=== PATIENT | male | born 1955 | race Caucasian/White ===

== ENCOUNTER 2024-08-05 14:04 | Inpatient (IN) ==
[2024-08-05] MEDS ORDERED: NS 1,000 ML IV 1,000 ML ONE ×2 (14:14→15:55)
[2024-08-05] MEDS: NS 1,000 ML IV 1,000 ML IV ONE ×2 (14:18→16:02)
--- NOTE | 2024-08-05 14:21 | DR.AMS ---
HPI Time Seen Time Seen by Provider: 08/05/24 14:18 Complaint Cheif Complaint Doctors Comments: 69 yo M, hx of CAD on plavix, BIBA for AMS. Daughter came to pt's house, found pt extremely confused, having trouble speaking. States he was only able to speak a few words. Pt able to ambulate with EMS to ambulance. Pt denies other complaints. PMH PMH Past Medical History: Coronary Artery Disease, Diabetes, Dyslipidemia and Hypertension Past Surgical History: Yes Surgical History: Angioplasty/Stents Family History Family Medical History: [place] and Coronary Artery Disease Social History Do you use any recreational Drugs:: No ROS Review of Systems Neurological: Speech Problem and Other (confusion) All Other Systems: Reviewed and Negative PE Vitals Vital Signs: Temp Pulse Resp BP Pulse Ox O2 Del Method 08/05/24 17:30 183/117 08/05/24 17:30 112 H 22 99 08/05/24 17:15 113 H 22 99 08/05/24 17:00 184/103 08/05/24 17:00 113 H 23 98 08/05/24 16:45 112 H 24 98 08/05/24 16:30 111 H 30 H 98 08/05/24 16:30 175/93 08/05/24 16:15 111 H 27 H 99 08/05/24 16:00 115 H 24 98 08/05/24 16:00 177/99 08/05/24 15:45 110 H 25 H 98 08/05/24 15:31 181/90 08/05/24 15:31 113 H 25 H 98 08/05/24 15:30 113 H 24 98 08/05/24 15:15 121 H 26 H 94 L 08/05/24 15:01 119 H 48 H 97 08/05/24 15:01 182/103 08/05/24 15:00 118 H 31 H 98 08/05/24 14:45 119 H 25 H 97 08/05/24 14:44 119 H 27 H 96 08/05/24 14:44 171/91 08/05/24 14:30 122 H 24 97 08/05/24 14:18 99.9 F H 122 H 22 194/108 98 Room Air 08/05/24 14:15 122 H 38 H 98 08/05/24 14:09 124 H 97 08/05/24 14:09 08/05/24 14:08/05/24 14:08 97 General Limitations: Language Barrier General Appearance: Alert Head Head Exam: Normal Inspection Eyes Eye exam: Normal Appearance ENT ENT Exam: Normal Exam External Ear Exam: Normal External Inspection Nose Exam: Normal Nose Exam Mouth Exam: Normal Inspection Throat Exam: Normal Inspection Neck Neck Exam: Normal Inspection Chest Chest Inspection: Normal Inspection Respiratory Respiratory Exam: Normal Lung Sounds Bilat Cardiovascular Cardiovascular Exam: Regular Rate and Normal Rhythm Abdominal Exam Abdominal Exam: Normal Inspection, Normal Bowel Sounds and Soft Extremities Extremities Exam: Normal Inspection Back Back Exam: Normal Inspection Neurological Neurological Exam: Other (confusion, oriented to person and place, but not time. Answers most questions appropriately, remains confused) Psychological Psychiatric Exam: Normal Affect and Normal Mood Skin Skin Exam: Warm, Dry, Intact and Normal Color ROR Labs Reviewed Laboratory Results Reviewed?: Yes 08/05/24 14:40 08/05/24 14:40 Laboratory: WBC 14.6 X10^3/uL (3.6-10.0) H 08/05/24 14:40 RBC 4.74 X10^6/uL (4.7-6.0) 08/05/24 14:40 Hgb 15.5 g/dL (13.5-18.0) 08/05/24 14:40 Hct 44.3 % (42.0-54.0) 08/05/24 14:40 MCV 93.6 fL (80.0-100.0) 08/05/24 14:40 MCH 32.7 pg (27.0-34.0) 08/05/24 14:40 MCHC 34.9 g/dL (33.0-35.0) 08/05/24 14:40 RDW 14.4 % (11.6-16.5) 08/05/24 14:40 Plt Count 302 X10^3/uL (150.0-450.0) 08/05/24 14:40 MPV 8.6 fL (7.4-11.0) 08/05/24 14:40 Neut % (Auto) 80.8 % (42.0-75.0) H 08/05/24 14:40 Lymph % (Auto) 12.7 % (21.0-51.0) L 08/05/24 14:40 [place] % (Auto) 6.0 % (0.0-13.0) 08/05/24 14:40 Eos % (Auto) 0.1 % (0.9-2.9) L 08/05/24 14:40 Baso % (Auto) 0.4 % (0.2-1.0) 08/05/24 14:40 Neut # (Auto) 11.8 x10^3/uL (2.2-4.8) H 08/05/24 14:40 Lymph # (Auto) 1.8 X10^3/uL (1.3-2.9) 08/05/24 14:40 [place] # (Auto) 0.9 x10^3/uL (0.3-0.8) H 08/05/24 14:40 Eos # (Auto) 0.0 x10^3/uL (0.0-0.2) 08/05/24 14:40 Baso # (Auto) 0.1 X10^3/uL (0.0-0.1) 08/05/24 14:40 Absolute Nucleated RBC 0.0 /100WBC 08/05/24 14:40 Sample Site Rbra 08/05/24 14:35 ABG pH 7.480 (7.35-7.45) H 08/05/24 14:35 ABG pCO2 25.0 mmHg (35.0-45.0) L 08/05/24 14:35 ABG pO2 85.0 mmHg (80.0-100.0) 08/05/24 14:35 ABG HCO3 18.6 mmol/L (22-26) L 08/05/24 14:35 ABG O2 Saturation 97.0 % (90-100) 08/05/24 14:35 ABG Base Excess -3.4 mmol/L (-2.0-2.0) L 08/05/24 14:35 Brandon Test Na 08/05/24 14:35 A-a Gradient 33.0 mmHg 08/05/24 14:35 FiO2 21.0 08/05/24 14:35 Blood Gas Comments Anni well ms 08/05/24 14:35 Sodium 135 mmol/L (136-145) L 08/05/24 14:40 Corrected Sodium 147 mmol/L (136-145) H 08/05/24 14:40 Potassium 4.0 mmol/L (3.5-5.1) 08/05/24 14:40 Chloride 98 mmol/L (98-107) 08/05/24 14:40 Carbon Dioxide 21.1 mmol/L (21-32) 08/05/24 14:40 BUN 25 mg/dL (7-18) H 08/05/24 14:40 Creatinine 1.52 mg/dL (0.70-1.30) H 08/05/24 14:40 Est GFR (MDRD) Af Amer 59 (>60) 08/05/24 14:40 Est GFR (MDRD) Non-Af 48 (>60) L 08/05/24 14:40 Glucose 607 mg/dL (65-99) H* 08/05/24 14:40 POC Glucose (mg/dL) 370 mg/dL (65-99) H 08/05/24 16:18 Lactic Acid 7.2 mmol/L (0.4-2.0) H* 08/05/24 14:40 Calcium 10.5 mg/dL (8.5-10.1) H 08/05/24 14:40 Corrected Calcium TNP 08/05/24 14:40 Total Bilirubin 1.40 mg/dL (0.2-1.0) H 08/05/24 14:40 AST 29 Units/L (15-37) 08/05/24 14:40 ALT 33 Units/L (12-78) 08/05/24 14:40 Alkaline Phosphatase 98 Units/L (46-116) 08/05/24 14:40 Creatine Kinase 445 Units/L (39-308) H 08/05/24 14:40 Troponin I High Sens 317.9 ng/L (4.0-60.0) H* 08/05/24 14:40 Total Protein 11.4 g/dL (6.4-8.2) H 08/05/24 14:40 Albumin 4.9 g/dL (3.4-5.0) 08/05/24 14:40 Globulin 6.5 g/dL (2.5-4.5) H 08/05/24 14:40 Albumin/Globulin Ratio 0.8 Ratio (1.1-2.1) L 08/05/24 14:40 Specimen Type Clean catch urine 08/05/24 14:41 Urine Color [place] (YELLOW) 08/05/24 14:41 Urine Appearance Cloudy (CLEAR) 08/05/24 14:41 Urine pH 6.0 (5.0 - 8.0) 08/05/24 14:41 Ur Specific [place] 1.010 (1.000-1.030) 08/05/24 14:41 Urine Protein 3+ (NEGATIVE) 08/05/24 14:41 Urine Glucose (UA) 4+ (NEGATIVE) 08/05/24 14:41 Urine Ketones 3+ (NEGATIVE) 08/05/24 14:41 Urine Blood 5+ (NEGATIVE) 08/05/24 14:41 Urine Nitrite Negative (NEGATIVE) 08/05/24 14:41 Urine Bilirubin Negative (NEGATIVE) 08/05/24 14:41 Urine Urobilinogen Normal (NORMAL) 08/05/24 14:41 Ur Leukocyte Esterase Negative (NEGATIVE) 08/05/24 14:41 Urine RBC Tntc /HPF (0-3) A 08/05/24 14:41 Urine WBC 0-2 /HPF (0-5) 08/05/24 14:41 Ur Squamous Epith Cells Rare /HPF (NEGATIVE) 08/05/24 14:41 Urine Bacteria Negative /HPF (NEGATIVE) 08/05/24 14:41 Ur Culture Indicated? No/not indicated 08/05/24 14:41 Urine Opiates Screen Negative (NEG=<300) 08/05/24 14:41 Urine Methadone Screen Negative (NEG=<300) 08/05/24 14:41 Ur Barbiturates Screen Negative (NEG=<200) 08/05/24 14:41 Ur Phencyclidine Scrn Negative (NEG=<25) 08/05/24 14:41 Ur Amphetamines Screen Negative (NEG=<1000) 08/05/24 14:41 U Benzodiazepines Scrn Negative (NEG=<200) 08/05/24 14:41 Urine Cocaine Screen Negative (NEG=<300) 08/05/24 14:41 U Marijuana (THC) Screen Negative (NEG=<50) 08/05/24 14:41 Acetone, Semi-Quant Negative (NEGATIVE) 08/05/24 14:40 Opioid Opioid Risk Tool Age (Walker box if 16-45): No History of Preadolescent Sexual Abuse: No Total: 0 Total Score Risk Category: Low Risk Copyright: [facility] predicting aberrant behaviors Discharge Plan Diagnosis Discharge Problem: Altered mental status, Hematuria, Platelet inhibition due to Plavix, Acute hyperglycemia, Elevated lactic acid level Discharge Plan Patient Disposition: 09 ADMITTED INPATIENT Condition: Stable Prescriptions: No Action citalopram 20 mg tablet 20 mg PO QDAY Qty: 30 2RF glipizide 2.5 mg tablet extended release 24hr 2.5 mg PO QDAY Qty: 30 3RF levothyroxine 88 mcg tablet 88 mcg PO QDAY 30 Days Qty: 30 5RF metformin 1,000 mg tablet 1,000 mg PO BID 30 Days Qty: 60 5RF niacin 1,000 mg tablet extended release 24 hr 1,000 mg PO BID Qty: 60 2RF pregabalin 300 mg capsule 300 mg PO BID 30 Days Qty: 60 2RF alprazolam 0.5 mg tablet 0.5 mg PO HS MDD 1 30 Days Qty: 30 2RF Rx Instructions: Free[employer] (one) Tablet at bedtime; Refills: 2; Provider: Stephany Duron oxycodone-acetaminophen 10-325 mg tablet 1 tab PO TID MDD 3 PRN (Reason: pain) 30 Days Qty: 90 0RF tamsulosin 0.4 mg capsule 0.4 mg PO QDAY 30 Days Qty: 30 3RF gemfibrozil 600 mg tablet 600 mg PO BID 30 Days Qty: 60 5RF atorvastatin 40 mg tablet 40 mg PO QDAY clopidogrel 75 mg tablet 75 mg PO QDAY metoprolol succinate 25 mg tablet extended release 24 hr 25 mg PO DAILY Patient Comments: [NO ORIGINAL SIG] Health Concerns: Post Hospitalization: new medications and changes needed to prevent readmission or further decline. Pt educated and given instructions on all concerns. Plan of Treatment: Continue with present treatment and follow up plan. Pt is to keep follow up appointment as instructed and take medications as ordered. Orders to Discharge Patient Discharge Orders: Transfer (Routine); Ordered 08/05/24 Ordered By: Ta Barton Follow ups/Referrals Follow ups/Referrals: Sally MCCLOUD [STAFF PHYSICIAN] - 3 days Instructions Stand Alone Forms: Find Help Web Site, Post Hospital Follow Up Care Print Language: LATVIAN
--- NOTE | 2024-08-05 14:32 | EKG ---
Test Reason : AMS Blood Pressure : */* mmHG Vent. Rate : 122 BPM Atrial Rate : 122 BPM P-R Int : 188 ms QRS Dur : 82 ms QT Int : 290 ms P-R-T Axes : 22 -13 84 degrees QTc Int : 413 ms Sinus tachycardia Septal infarct , age undetermined Possible Lateral infarct , age undetermined Abnormal ECG No previous ECGs available Confirmed by Ken uDmont MD ([id number]) on 08/06/2024 7:13:20 AM Referred By: Confirmed By: Ken Dumont MD
[2024-08-05 14:38] LABS: ABG BASE EXCESS -3.4 mmol/L (-2.0-2.0); ABG HCO3 18.6 mmol/L (22-26)
--- NOTE | 2024-08-05 14:43 | CT ---
EXAM: BRAIN W/O CON HISTORY: AMS; COMPARISON: No relevant prior studies were available for comparison at the time of interpretation.. TECHNIQUE: CT images were obtained. Multiplanar reconstructions were created on a separate workstation and used during interpretation. All CT scans at this facility is dose modulation, iterative reconstruction, and/or weight-based dosing as appropriate to reduce radiation to levels as low as reasonably achievable (ALARA). Postprocessing details, radiation dose, and contrast dose (if applicable) are recorded in the patient's medical record. FINDINGS: Head: Acute findings: There is no intracranial hemorrhage. No mass effect. No intra-axial or extra-axial fluid collection. There is no mass. No tentorial, uncal, or tonsillar herniation. Brain volume and white matter: There is diffuse cortical atrophy. There is hypoattenuation in the supratentorial white matter consistent with chronic microvascular ischemic disease. Ventricles: No hydrocephalus Midline structures: Pituitary gland and corpus callosum are normal. Posterior fossa and skull base: Cerebellum and posterior fossa are within normal limits. Basal cisterns are not effaced. Sinuses and mastoids: Paranasal sinuses and mastoid air cells are predominantly clear. Globes and Orbits: Globes are intact. Bony orbits are intact. Orbital contents are unremarkable. Skull and soft tissues: No depressed skull fracture. Calvarium appears intact. No scalp injury is identified. IMPRESSION: 1. No acute intracranial abnormality THIS IS AN ELECTRONICALLY VERIFIED FINAL REPORT 08/05/2024 2:39 PM - Electronically signed by Jeffery Mora MD
[2024-08-05 15:00] LABS: BASOPHILS # (AUTO) 0.1 X10^3/uL (0.0-0.1); BASOPHILS % (AUTO) 0.4 % (0.2-1.0); EOSINOPHILS % (AUTO) 0.1 % (0.9-2.9); HEMATOCRIT 44.3 % (42.0-54.0); HEMOGLOBIN 15.5 g/dL (13.5-18.0); LYMPHOCYTES # (AUTO) 1.8 X10^3/uL (1.3-2.9); LYMPHOCYTES % (AUTO) 12.7 % (21.0-51.0); MEAN CORPUSCULAR HEMOGLOBIN 32.7 pg (27.0-34.0); MEAN CORPUSCULAR HGB CONC 34.9 g/dL (33.0-35.0); MEAN CORPUSCULAR VOLUME 93.6 fL (80.0-100.0); MEAN PLATELET VOLUME 8.6 fL (7.4-11.0); MONOCYTES # (AUTO) 0.9 x10^3/uL (0.3-0.8); NEUTROPHILS # (AUTO) 11.8 x10^3/uL (2.2-4.8); NEUTROPHILS % (AUTO) 80.8 % (42.0-75.0); PLATELET COUNT 302 X10^3/uL (150.0-450.0); RED BLOOD COUNT 4.74 X10^6/uL (4.7-6.0); RED CELL DISTRIBUTION WIDTH 14.4 % (11.6-16.5); WHITE BLOOD COUNT 14.6 X10^3/uL (3.6-10.0)
[2024-08-05 15:06] LABS: APPEARANCE,URINE CLOUDY (CLEAR); BILIRUBIN,URINE NEGATIVE (NEGATIVE); BLOOD/HEMOGLOBIN,URINE 5+ (NEGATIVE); COLOR,URINE PINK (YELLOW); GLUCOSE, URINE 4+ (NEGATIVE); KETONES,URINE 3+ (NEGATIVE); LEUKOCYTE ESTERASE ,URINE NEGATIVE (NEGATIVE); NITRITES,URINE NEGATIVE (NEGATIVE); PROTEIN,URINE 3+ (NEGATIVE); UROBILINOGEN,URINE NORMAL (NORMAL)
[2024-08-05 15:07] LABS: BACTERIA,URINE NEGATIVE /HPF (NEGATIVE); RBC,URINE TNTC /HPF (0-3); SQUAMOUS EPITHELIAL CELL,UR RARE /HPF (NEGATIVE)
[2024-08-05 15:13] LABS: ALANINE AMINOTRANSFERASE 33 Units/L (12-78); ALBUMIN 4.9 g/dL (3.4-5.0); ALKALINE PHOSPHATASE 98 Units/L (46-116); ASPARTATE AMINO TRANSFERASE 29 Units/L (15-37); BLOOD UREA NITROGEN 25 mg/dL (7-18); CALCIUM 10.5 mg/dL (8.5-10.1); CARBON DIOXIDE 21.1 mmol/L (21-32); CHLORIDE 98 mmol/L (98-107); CREATININE 1.52 mg/dL (0.70-1.30); SODIUM 135 mmol/L (136-145); TOTAL PROTEIN 11.4 g/dL (6.4-8.2); eGFR NON BLACK RACES 48 (>60)
[2024-08-05 15:15] LABS: COR NA(FOR HYPERGLY) 147 mmol/L (136-145); GLUCOSE 607 mg/dL (65-99)
[2024-08-05] MEDS ORDERED: NovoLIN R (or HumuLIN R) ONE (15:21)
[2024-08-05] MEDS: NovoLIN R (or HumuLIN R) IV ONE (15:27)
[2024-08-05] MEDS: ATIVAN INJ 2 MG VIAL IVP ONE (18:31)
[2024-08-05] MEDS: ROCEPHIN VIAL 1 GRAM IV SCH (18:31)
[2024-08-05] MEDS: VANCOMYCIN IV *PREMIX 1 G/200 ML BAG 1 G/200 ML PIGGYBACK IV SCH (18:31)
[2024-08-05] MEDS: NS 1,000 ML IV 1,000 ML IV SCH (19:36)
[2024-08-05] MEDS: SNACK - Diabetic Appropriate PO SCH (19:56)
[2024-08-05] MEDS ORDERED: SNACK - Diabetic Appropriate PO SCH (20:00)
[2024-08-05] MEDS: LYRICA CAP 150 mg PO SCH (20:35)
[2024-08-05] MEDS: NovoLIN R (or HumuLIN R) SUBCUT PRN (20:35)
[2024-08-05] MEDS: ALPRAZOLAM ODT PO SCH (20:35)
[2024-08-05] MEDS: NIASPAN ER TAB 500 MG PO SCH (20:57)
[2024-08-05] MEDS ORDERED: NS 250 ML IV 25 ML IV PRN (21:32)
[2024-08-05] MEDS: ZOSYN VIAL 3.375 GRAMS 3.375 G in NS 100 ML IV 100 ML IV SCH (22:16)
[2024-08-06 05:27] LABS: INR 1.27 (0.8-1.3)
[2024-08-06 05:29] LABS: BASOPHILS % (AUTO) 0.2 % (0.2-1.0); EOSINOPHILS # (AUTO) 0.1 x10^3/uL (0.0-0.2); EOSINOPHILS % (AUTO) 0.4 % (0.9-2.9); HEMATOCRIT 37.6 % (42.0-54.0); LYMPHOCYTES # (AUTO) 2.8 X10^3/uL (1.3-2.9); LYMPHOCYTES % (AUTO) 18.6 % (21.0-51.0); MEAN CORPUSCULAR HGB CONC 35.8 g/dL (33.0-35.0); MEAN CORPUSCULAR VOLUME 92.1 fL (80.0-100.0); MEAN PLATELET VOLUME 8.6 fL (7.4-11.0); MONOCYTES # (AUTO) 1.1 x10^3/uL (0.3-0.8); MONOCYTES % (AUTO) 7.2 % (0.0-13.0); NEUTROPHILS # (AUTO) 11.1 x10^3/uL (2.2-4.8); NEUTROPHILS % (AUTO) 73.6 % (42.0-75.0); PLATELET COUNT 222 X10^3/uL (150.0-450.0); RED BLOOD COUNT 4.08 X10^6/uL (4.7-6.0); RED CELL DISTRIBUTION WIDTH 13.9 % (11.6-16.5)
[2024-08-06 05:43] LABS: ALANINE AMINOTRANSFERASE 29 Units/L (12-78); ALBUMIN 3.9 g/dL (3.4-5.0); ALKALINE PHOSPHATASE 75 Units/L (46-116); ASPARTATE AMINO TRANSFERASE 28 Units/L (15-37); BLOOD UREA NITROGEN 20 mg/dL (7-18); CALCIUM 8.7 mg/dL (8.5-10.1); CARBON DIOXIDE 22.8 mmol/L (21-32); CHLORIDE 99 mmol/L (98-107); CHOL/HDL RATIO 2.8 (0.0-5.0); CHOLESTEROL 116 mg/dL (0-200); COR NA(FOR HYPERGLY) 140 mmol/L (136-145); CREATININE 0.76 mg/dL (0.70-1.30); GLUCOSE 310 mg/dL (65-99); HDL CHOLESTEROL 42 mg/dL (40-60); MAGNESIUM 1.9 mg/dL (2.0-2.9); POTASSIUM 3.1 mmol/L (3.5-5.1); SODIUM 135 mmol/L (136-145); TRIGLYCERIDES 184 mg/dL (0-150); eGFR NON BLACK RACES > 60 (>60)
[2024-08-06 05:52] LABS: HEMOGLOBIN 13.5 g/dL (13.5-18.0)
[2024-08-06] MEDS: SYNTHROID 88 mcg TAB PO SCH (06:14)
[2024-08-06] MEDS: GLUCOPHAGE PO SCH (06:15)
[2024-08-06 06:17] LABS: BILIRUBIN,URINE NEGATIVE (NEGATIVE); BLOOD/HEMOGLOBIN,URINE 5+ (NEGATIVE); GLUCOSE, URINE 4+ (NEGATIVE); KETONES,URINE 4+ (NEGATIVE); LEUKOCYTE ESTERASE ,URINE 1+ (NEGATIVE); NITRITES,URINE NEGATIVE (NEGATIVE); PROTEIN,URINE 3+ (NEGATIVE); UROBILINOGEN,URINE NORMAL (NORMAL)
[2024-08-06] MEDS: GLUCOPHAGE ONE ×2 (06:22→16:49)
[2024-08-06 06:26] LABS: APPEARANCE,URINE SLIGHTLY HAZY (CLEAR); BACTERIA,URINE NEGATIVE /HPF (NEGATIVE); COLOR,URINE BLOODY (YELLOW); RBC,URINE TNTC /HPF (0-3); SQUAMOUS EPITHELIAL CELL,UR NEGATIVE /HPF (NEGATIVE)
[2024-08-06] MEDS ORDERED: CONSULT PHARMACY - POTASSIUM & MAGNESIUM XX SCH (07:00)
[2024-08-06] MEDS: LIPITOR TAB 40 MG PO SCH (08:05)
[2024-08-06] MEDS: FLOMAX PO SCH (08:05)
[2024-08-06] MEDS: MAG-OX TAB PO SCH (08:06)
[2024-08-06] MEDS: CELEXA PO SCH (08:06)
[2024-08-06] MEDS: TOPROL XL PO SCH (08:06)
[2024-08-06] MEDS: K-DUR TAB 20 MEQ PO SCH (08:07)
[2024-08-06] MEDS: GLUCOTROL XL 24-HR PO SCH (08:08)
[2024-08-06] MEDS: LOPID PO SCH (08:27)
--- NOTE | 2024-08-06 09:58 | RAD ---
EXAMINATION: CHEST, 1 VIEW HISTORY: RULE OUT INFILTRATE ; CAD, HTN, DM SX: ANGIO/STENTS . COMPARISON STUDY: 09/28/2021 TECHNIQUE: Two views FINDINGS: . Heart size is mildly enlarged. No acute infiltrates. There is no pneumothorax. Hilar and mediastinal structures and bony structures are unremarkable. EKG leads overlie the chest. IMPRESSION: No acute process in the chest. THIS IS AN ELECTRONICALLY VERIFIED FINAL REPORT 08/06/2024 9:54 AM - Electronically signed by Hipolito Cardenas MD
[2024-08-06] MEDS: VANCOMYCIN IV *PREMIX 1 G/200 ML BAG 1 G/200 ML PIGGYBACK IV SCH (10:06)
--- NOTE | 2024-08-06 10:15 | DR.H&P ---
H&P History & Physical for Day of: H&P Date: 08/06/24 Chief Complaint Chief Complaint: AMS History of Present Illness History of Present Illness: Mr. Estrella is a 69-year-old male with a past medical history of CAD, type 2 diabetes, hypertension, hyperlipidemia and chronic pain was brought into the ER due to altered mental status. He was found by his daughter at home confused and unable to speak properly. ER workup included CT brain which was negative. Labs showed elevated white count, elevated lactic acid and elevated glucose. His lactic acid level was 7.2 and his glucose was 607. He also had elevated troponin and CK. UA showed blood and RBCs. He was started on fluids and empiric antibiotics. He was admitted for further management. This morning he reports feeling better. He does not recall how he came to the hospital but he is alert and oriented to answer questions. He denies fever or chills, nausea or vomiting. Denies chest pain or shortness of breath. Denies urinary sx. No hx of pressure ulcers. Denies recent falls. He reports taking metformin and glipizide for diabetes. He states he is unable to recall if he took his medicines for the last couple days. His lactic acid trended down to 1.1. His troponin trended down from 317-206. He has been afebrile. He remains on IV antibiotics and fluids. Blood cultures pending. Labs/imaging reviewed: - WBC 15 hemoglobin 13.5 potassium 3.1 creatinine 0.76 glucose 308 - Lactic acid 1.1 troponin 206 magnesium 1.9 - Total CK6 63 - CT brain negative -CXR: no acute changes Plan: Admit to [facility] with telemetry. Continue IV fluids and antibiotics. Follow-up pending cultures. Resume home medications. Continue SSI for hyperglycemia. Replace electrolytes as per protocol. Remove Hsieh as per protocol. Physical therapy as tolerated. Monitor a.m. labs and imaging. Time spent for clinical assessment, reviewing labs/imaging, physical exam, decision making and documentation greater than 45 mins. Past Medical History Past Medical History: Coronary Artery Disease, Diabetes, Dyslipidemia and Hypertension Past Surgical History Surgical History: Angioplasty/Stents Family History Family Medical History: [place] and Coronary Artery Disease Social History Does patient currently use any type of tobacco product: No Have you used tobacco products in the last 12 months: No Type of Tobacco Use: None Does any household member use tobacco: No Alcohol Use: None Medications Home Medications: Home Medications Medication Instructions Recorded Confirmed Type atorvastatin 40 mg tablet 40 mg PO QDAY 08/05/2408/05 History clopidogrel 75 mg tablet 75 mg PO QDAY 08/05/2408/05 History metoprolol succinate 25 mg 25 mg PO DAILY 08/05/2412/20 History tablet,extended release 24 hr Allergies Allergies Allergy/AdvReac Type Severity Reaction Status Date / Time No Known Drug Allergies Allergy Unknown Verified 08/05/24 14:40 Labs 08/06/24 04:48 08/06/24 04:48 Labs: Laboratory WBC 15.0 X10^3/uL (3.6-10.0) H 08/06/24 04:48 RBC 4.08 X10^6/uL (4.7-6.0) L 08/06/24 04:48 Hgb 13.5 g/dL (13.5-18.0) D 08/06/24 04:48 Hct 37.6 % (42.0-54.0) L 08/06/24 04:48 MCV 92.1 fL (80.0-100.0) 08/06/24 04:48 MCH 33.0 pg (27.0-34.0) 08/06/24 04:48 MCHC 35.8 g/dL (33.0-35.0) H 08/06/24 04:48 RDW 13.9 % (11.6-16.5) 08/06/24 04:48 Plt Count 222 X10^3/uL (150.0-450.0) 08/06/24 04:48 MPV 8.6 fL (7.4-11.0) 08/06/24 04:48 Neut % (Auto) 73.6 % (42.0-75.0) 08/06/24 04:48 Lymph % (Auto) 18.6 % (21.0-51.0) L 08/06/24 04:48 [place] % (Auto) 7.2 % (0.0-13.0) 08/06/24 04:48 Eos % (Auto) 0.4 % (0.9-2.9) L 08/06/24 04:48 Baso % (Auto) 0.2 % (0.2-1.0) 08/06/24 04:48 Neut # (Auto) 11.1 x10^3/uL (2.2-4.8) H 08/06/24 04:48 Lymph # (Auto) 2.8 X10^3/uL (1.3-2.9) 08/06/24 04:48 [place] # (Auto) 1.1 x10^3/uL (0.3-0.8) H 08/06/24 04:48 Eos # (Auto) 0.1 x10^3/uL (0.0-0.2) 08/06/24 04:48 Baso # (Auto) 0.0 X10^3/uL (0.0-0.1) 08/06/24 04:48 Absolute Nucleated RBC 0.2 /100WBC 08/06/24 04:48 PT 16.1 SECONDS (11.8-14.3) 08/06/24 04:48 INR Target Range - 08/06/24 04:48 INR 1.27 (0.8-1.3) 08/06/24 04:48 APTT 33.2 SECONDS (22.9-36.5) 08/06/24 04:48 PTT Comment - 08/06/24 04:48 Sample Site Rbra 08/05/24 14:35 ABG pH 7.480 (7.35-7.45) H 08/05/24 14:35 ABG pCO2 25.0 mmHg (35.0-45.0) L 08/05/24 14:35 ABG pO2 85.0 mmHg (80.0-100.0) 08/05/24 14:35 ABG HCO3 18.6 mmol/L (22-26) L 08/05/24 14:35 ABG O2 Saturation 97.0 % (90-100) 08/05/24 14:35 ABG Base Excess -3.4 mmol/L (-2.0-2.0) L 08/05/24 14:35 Brandon Test Na 08/05/24 14:35 A-a Gradient 33.0 mmHg 08/05/24 14:35 FiO2 21.0 08/05/24 14:35 Blood Gas Comments Anni well ms 08/05/24 14:35 Sodium 135 mmol/L (136-145) L 08/06/24 04:48 Corrected Sodium 140 mmol/L (136-145) 08/06/24 04:48 Potassium 3.1 mmol/L (3.5-5.1) L 08/06/24 04:48 Chloride 99 mmol/L (98-107) 08/06/24 04:48 Carbon Dioxide 22.8 mmol/L (21-32) 08/06/24 04:48 BUN 20 mg/dL (7-18) H 08/06/24 04:48 Creatinine 0.76 mg/dL (0.70-1.30) 08/06/24 04:48 Est GFR (MDRD) Af Amer > 60 (>60) 08/06/24 04:48 Est GFR (MDRD) Non-Af > 60 (>60) 08/06/24 04:48 Glucose 310 mg/dL (65-99) H 08/06/24 04:48 POC Glucose (mg/dL) 308 mg/dL (65-99) H 08/06/24 06:06 Lactic Acid 1.1 mmol/L (0.4-2.0) 08/06/24 07:24 Calcium 8.7 mg/dL (8.5-10.1) 08/06/24 04:48 Corrected Calcium TNP 08/06/24 04:48 Magnesium 1.9 mg/dL (2.0-2.9) L 08/06/24 04:48 Total Bilirubin 0.90 mg/dL (0.2-1.0) 08/06/24 04:48 AST 28 Units/L (15-37) 08/06/24 04:48 ALT 29 Units/L (12-78) 08/06/24 04:48 Alkaline Phosphatase 75 Units/L (46-116) 08/06/24 04:48 Creatine Kinase 575 Units/L (39-308) H 08/06/24 08:41 Troponin I High Sens 155.6 ng/L (4.0-60.0) H* 08/06/24 08:41 Total Protein 9.0 g/dL (6.4-8.2) H 08/06/24 04:48 Albumin 3.9 g/dL (3.4-5.0) 08/06/24 04:48 Globulin 5.1 g/dL (2.5-4.5) H 08/06/24 04:48 Albumin/Globulin Ratio 0.8 Ratio (1.1-2.1) L 08/06/24 04:48 Triglycerides 184 mg/dL (0-150) H 08/06/24 04:48 Cholesterol 116 mg/dL (0-200) 08/06/24 04:48 LDL Cholesterol, Calc 37 mg/dL (0-100) 08/06/24 04:48 HDL Cholesterol 42 mg/dL (40-60) 08/06/24 04:48 Cholesterol/HDL Ratio 2.8 (0.0-5.0) 08/06/24 04:48 Specimen Type Catherized urine 08/06/24 05:45 Urine Color Bloody (YELLOW) 08/06/24 05:45 Urine Appearance Slightly hazy (CLEAR) 08/06/24 05:45 Urine pH 6.0 (5.0 - 8.0) 08/06/24 05:45 Ur Specific [place] 1.020 (1.000-1.030) 08/06/24 05:45 Urine Protein 3+ (NEGATIVE) 08/06/24 05:45 Urine Glucose (UA) 4+ (NEGATIVE) 08/06/24 05:45 Urine Ketones 4+ (NEGATIVE) 08/06/24 05:45 Urine Blood 5+ (NEGATIVE) 08/06/24 05:45 Urine Nitrite Negative (NEGATIVE) 08/06/24 05:45 Urine Bilirubin Negative (NEGATIVE) 08/06/24 05:45 Urine Urobilinogen Normal (NORMAL) 08/06/24 05:45 Ur Leukocyte Esterase 1+ (NEGATIVE) 08/06/24 05:45 Urine RBC Tntc /HPF (0-3) A 08/06/24 05:45 Urine WBC 0-2 /HPF (0-5) 08/06/24 05:45 Ur Squamous Epith Cells Negative /HPF (NEGATIVE) 08/06/24 05:45 Urine Bacteria Negative /HPF (NEGATIVE) 08/06/24 05:45 Ur Culture Indicated? No/not indicated 08/06/24 05:45 Urine Opiates Screen Negative (NEG=<300) 08/05/24 14:41 Urine Methadone Screen Negative (NEG=<300) 08/05/24 14:41 Ur Barbiturates Screen Negative (NEG=<200) 08/05/24 14:41 Ur Phencyclidine Scrn Negative (NEG=<25) 08/05/24 14:41 Ur Amphetamines Screen Negative (NEG=<1000) 08/05/24 14:41 U Benzodiazepines Scrn Negative (NEG=<200) 08/05/24 14:41 Urine Cocaine Screen Negative (NEG=<300) 08/05/24 14:41 U Marijuana (THC) Screen Negative (NEG=<50) 08/05/24 14:41 Acetone, Semi-Quant Negative (NEGATIVE) 08/05/24 14:40 Review of Systems Constitutional: Weakness Eyes: No Symptoms Reported ENT: No Symptoms Reported Respiratory: No Symptoms Reported Cardiovascular: No Symptoms Reported Gastrointestinal: No Symptoms Reported Genitourinary: No Symptoms Reported Musculoskeletal: No Symptoms Reported Skin: No Symptoms Reported Neurological: Confusion Physical Exam Vital Signs: Vital Signs Temperature 97.8 F Temperature 98.0 F Pulse Rate [Bilateral Radial] 103 Pulse Rate [Bilateral Radial] 106 Respiratory Rate 20 Respiratory Rate 18 Blood Pressure [Right Arm] 165/98 Blood Pressure [Right Arm] 158/78 Blood Pressure [Right Arm] 170/90 O2 Sat by Pulse Oximetry 96 O2 Sat by Pulse Oximetry 95 Oriented: Normal Respiratory: Diminished Throughout Cardiovascular: Normal and Edema Auscultation: Bowel Sounds: Normal Palpation: Normal Tenderness: Normal Skin: Normal Musculoskeletal: Normal Psychiatric: Normal Mood Description: Calm Affect: Normal Speech Pattern: Clear and Appropriate Assessment/Plan (1) Acute hyperglycemia: Status: Acute (2) Altered mental status: Qualifiers: Altered mental status type: unspecified Qualified Code(s): R41.82 - Altered mental status, unspecified Status: Acute (3) Leukocytosis: Qualifiers: Leukocytosis type: other Qualified Code(s): D72.828 - Other elevated white blood cell count Status: Acute (4) Rhabdomyolysis: Qualifiers: Rhabdomyolysis type: non-traumatic Qualified Code(s): M62.82 - Rhabdomyolysis Status: Acute (5) Hypokalemia: Status: Acute (6) 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
[2024-08-06] MEDS: NS 250 ML IV 250 ML IV ONE (16:49)
[2024-08-07 05:28] LABS: BASOPHILS # (AUTO) 0.1 X10^3/uL (0.0-0.1); BASOPHILS % (AUTO) 0.7 % (0.2-1.0); EOSINOPHILS # (AUTO) 0.2 x10^3/uL (0.0-0.2); EOSINOPHILS % (AUTO) 2.1 % (0.9-2.9); HEMATOCRIT 35.9 % (42.0-54.0); LYMPHOCYTES # (AUTO) 2.1 X10^3/uL (1.3-2.9); LYMPHOCYTES % (AUTO) 27.5 % (21.0-51.0); MEAN CORPUSCULAR HEMOGLOBIN 33.5 pg (27.0-34.0); MEAN CORPUSCULAR HGB CONC 36.1 g/dL (33.0-35.0); MEAN CORPUSCULAR VOLUME 92.8 fL (80.0-100.0); MEAN PLATELET VOLUME 8.2 fL (7.4-11.0); MONOCYTES # (AUTO) 0.5 x10^3/uL (0.3-0.8); MONOCYTES % (AUTO) 6.1 % (0.0-13.0); NEUTROPHILS # (AUTO) 4.8 x10^3/uL (2.2-4.8); NEUTROPHILS % (AUTO) 63.6 % (42.0-75.0); PLATELET COUNT 163 X10^3/uL (150.0-450.0); RED BLOOD COUNT 3.87 X10^6/uL (4.7-6.0); RED CELL DISTRIBUTION WIDTH 14.2 % (11.6-16.5); WHITE BLOOD COUNT 7.6 X10^3/uL (3.6-10.0)
[2024-08-07 05:37] LABS: ALANINE AMINOTRANSFERASE 27 Units/L (12-78); ALBUMIN 3.5 g/dL (3.4-5.0); ALKALINE PHOSPHATASE 68 Units/L (46-116); ASPARTATE AMINO TRANSFERASE 33 Units/L (15-37); BLOOD UREA NITROGEN 18 mg/dL (7-18); CALCIUM 8.5 mg/dL (8.5-10.1); CARBON DIOXIDE 25.3 mmol/L (21-32); CHLORIDE 102 mmol/L (98-107); COR NA(FOR HYPERGLY) 142 mmol/L (136-145); CREATININE 0.71 mg/dL (0.70-1.30); GLUCOSE 272 mg/dL (65-99); MAGNESIUM 1.9 mg/dL (2.0-2.9); POTASSIUM 3.5 mmol/L (3.5-5.1); SODIUM 138 mmol/L (136-145); TOTAL PROTEIN 8.1 g/dL (6.4-8.2); eGFR NON BLACK RACES > 60 (>60)
[2024-08-07 05:43] LABS: VANCOMYCIN,TROUGH 10.5 ug/mL (15-20)
[2024-08-07] MEDS: PHARMACY COMMENT IV NR (06:00)
[2024-08-07] MEDS: GLUCOPHAGE ONE (06:02)
[2024-08-07] MEDS ORDERED: CONSULT PHARMACY - POTASSIUM & MAGNESIUM XX SCH (07:00)
[2024-08-07] MEDS: MAG-OX TAB PO SCH (09:21)
[2024-08-07] MEDS: K-DUR TAB 20 MEQ PO SCH (09:22)
[2024-08-07] MEDS: PERCOCET TAB 5/325 MG PO PRN (09:27)
--- NOTE | 2024-08-07 09:41 | PCM.PROG ---
Progress Note Progress Note for Day of Date of Exam: 08/07/24 Subjective Subjective: Patient is a 69-year-old male with a past medical history of CAD, type 2 diabetes, hypertension, hyperlipidemia and chronic pain admitted for hyperglycemia, altered mental status, leukocytosis, rhabdomyolysis, hypokalemia. This morning he is resting comfortably in bed. No acute events overnight. He reports feeling significantly better. He is alert and oriented. He does remember that on day of admission at home he did have hematuria. Labs/imaging reviewed: - WBC 7.6, hemoglobin 13, Plt 163, Na 138, potassium 3.5, creatinine 0.71, glucose 272, mag 1.9 - magnesium 1.9 - Blood culture pending Plan: Continue IV fluids and antibiotics. Follow-up pending cultures. Home medications have been resumed. Continue SSI for hyperglycemia. Replace electrolytes as per protocol. Will order a CT abdomen pelvis for further evaluation of hematuria. Remove Campos as per protocol. Physical therapy as tolerated. Monitor a.m. labs and imaging. Time spent for clinical assessment, reviewing labs/imaging, physical exam, decision making and documentation greater than 45 mins. Past Medical Family Social History Allergies: Allergies No Known Drug Allergies Allergy (Unknown, Verified 08/05/24 14:40) Onset Date: 05/18/2017 Review of Systems ROS changes noted: see HPI Vital Signs and I&O's Vital Signs: Vital Signs Temperature 97.7 F Temperature 97.5 F Pulse Rate [Bilateral Radial] 83 Pulse Rate [Bilateral Radial] 86 Respiratory Rate 17 Respiratory Rate 20 Blood Pressure [Left Arm] 160/86 Blood Pressure [Left Arm] 160/87 O2 Sat by Pulse Oximetry 95 O2 Sat by Pulse Oximetry 97 Intake and Output: Intake & Output 08/04/24 08/05/24 08/06/24 08/07/24 23:59 23:59 23:59 23:59 Intake Total 422 / 422 2984 / 2984 850 / 850 Output Total 900 / 900 2075 / 2075 675 / 675 Balance -478 / -478 909 / 909 175 / 175 Physical Exam Oriented: Normal Eyes: Normal Respiratory: Normal Cardiovascular: Normal and Edema : Other (campos catheter) Auscultation: Bowel Sounds: Normal Palpation: Normal Tenderness: Normal Skin: Normal Musculoskeletal: Normal Psychiatric: Normal Mood Description: Calm Affect: Normal Speech Pattern: Clear and Appropriate Laboratory and Diagnostics 08/07/24 05:02 08/07/24 05:02 Labs: Laboratory WBC 7.6 X10^3/uL (3.6-10.0) 08/07/24 05:02 RBC 3.87 X10^6/uL (4.7-6.0) L 08/07/24 05:02 Hgb 13.0 g/dL (13.5-18.0) L 08/07/24 05:02 Hct 35.9 % (42.0-54.0) L 08/07/24 05:02 MCV 92.8 fL (80.0-100.0) 08/07/24 05:02 MCH 33.5 pg (27.0-34.0) 08/07/24 05:02 MCHC 36.1 g/dL (33.0-35.0) H 08/07/24 05:02 RDW 14.2 % (11.6-16.5) 08/07/24 05:02 Plt Count 163 X10^3/uL (150.0-450.0) 08/07/24 05:02 MPV 8.2 fL (7.4-11.0) 08/07/24 05:02 Neut % (Auto) 63.6 % (42.0-75.0) 08/07/24 05:02 Lymph % (Auto) 27.5 % (21.0-51.0) 08/07/24 05:02 [place] % (Auto) 6.1 % (0.0-13.0) 08/07/24 05:02 Eos % (Auto) 2.1 % (0.9-2.9) 08/07/24 05:02 Baso % (Auto) 0.7 % (0.2-1.0) 08/07/24 05:02 Neut # (Auto) 4.8 x10^3/uL (2.2-4.8) 08/07/24 05:02 Lymph # (Auto) 2.1 X10^3/uL (1.3-2.9) 08/07/24 05:02 [place] # (Auto) 0.5 x10^3/uL (0.3-0.8) 08/07/24 05:02 Eos # (Auto) 0.2 x10^3/uL (0.0-0.2) 08/07/24 05:02 Baso # (Auto) 0.1 X10^3/uL (0.0-0.1) 08/07/24 05:02 Absolute Nucleated RBC 0.0 /100WBC 08/07/24 05:02 PT 16.1 SECONDS (11.8-14.3) 08/06/24 04:48 INR Target Range - 08/06/24 04:48 INR 1.27 (0.8-1.3) 08/06/24 04:48 APTT 33.2 SECONDS (22.9-36.5) 08/06/24 04:48 PTT Comment - 08/06/24 04:48 Sample Site Rbra 08/05/24 14:35 ABG pH 7.480 (7.35-7.45) H 08/05/24 14:35 ABG pCO2 25.0 mmHg (35.0-45.0) L 08/05/24 14:35 ABG pO2 85.0 mmHg (80.0-100.0) 08/05/24 14:35 ABG HCO3 18.6 mmol/L (22-26) L 08/05/24 14:35 ABG O2 Saturation 97.0 % (90-100) 08/05/24 14:35 ABG Base Excess -3.4 mmol/L (-2.0-2.0) L 08/05/24 14:35 Brandon Test Na 08/05/24 14:35 A-a Gradient 33.0 mmHg 08/05/24 14:35 FiO2 21.0 08/05/24 14:35 Blood Gas Comments Anni well ms 08/05/24 14:35 Sodium 138 mmol/L (136-145) 08/07/24 05:02 Corrected Sodium 142 mmol/L (136-145) 08/07/24 05:02 Potassium 3.5 mmol/L (3.5-5.1) 08/07/24 05:02 Chloride 102 mmol/L (98-107) 08/07/24 05:02 Carbon Dioxide 25.3 mmol/L (21-32) 08/07/24 05:02 BUN 18 mg/dL (7-18) 08/07/24 05:02 Creatinine 0.71 mg/dL (0.70-1.30) 08/07/24 05:02 Est GFR (MDRD) Af Amer > 60 (>60) 08/07/24 05:02 Est GFR (MDRD) Non-Af > 60 (>60) 08/07/24 05:02 Glucose 272 mg/dL (65-99) H 08/07/24 05:02 POC Glucose (mg/dL) 252 mg/dL (65-99) H 08/07/24 05:09 Lactic Acid 1.1 mmol/L (0.4-2.0) 08/06/24 07:24 Calcium 8.5 mg/dL (8.5-10.1) 08/07/24 05:02 Corrected Calcium TNP 08/07/24 05:02 Magnesium 1.9 mg/dL (2.0-2.9) L 08/07/24 05:02 Total Bilirubin 0.80 mg/dL (0.2-1.0) 08/07/24 05:02 AST 33 Units/L (15-37) 08/07/24 05:02 ALT 27 Units/L (12-78) 08/07/24 05:02 Alkaline Phosphatase 68 Units/L (46-116) 08/07/24 05:02 Creatine Kinase 575 Units/L (39-308) H 08/06/24 08:41 Troponin I High Sens 155.6 ng/L (4.0-60.0) H* 08/06/24 08:41 Total Protein 8.1 g/dL (6.4-8.2) 08/07/24 05:02 Albumin 3.5 g/dL (3.4-5.0) 08/07/24 05:02 Globulin 4.6 g/dL (2.5-4.5) H 08/07/24 05:02 Albumin/Globulin Ratio 0.8 Ratio (1.1-2.1) L 08/07/24 05:02 Triglycerides 184 mg/dL (0-150) H 08/06/24 04:48 Cholesterol 116 mg/dL (0-200) 08/06/24 04:48 LDL Cholesterol, Calc 37 mg/dL (0-100) 08/06/24 04:48 HDL Cholesterol 42 mg/dL (40-60) 08/06/24 04:48 Cholesterol/HDL Ratio 2.8 (0.0-5.0) 08/06/24 04:48 Specimen Type Catherized urine 08/06/24 05:45 Urine Color Bloody (YELLOW) 08/06/24 05:45 Urine Appearance Slightly hazy (CLEAR) 08/06/24 05:45 Urine pH 6.0 (5.0 - 8.0) 08/06/24 05:45 Ur Specific [place] 1.020 (1.000-1.030) 08/06/24 05:45 Urine Protein 3+ (NEGATIVE) 08/06/24 05:45 Urine Glucose (UA) 4+ (NEGATIVE) 08/06/24 05:45 Urine Ketones 4+ (NEGATIVE) 08/06/24 05:45 Urine Blood 5+ (NEGATIVE) 08/06/24 05:45 Urine Nitrite Negative (NEGATIVE) 08/06/24 05:45 Urine Bilirubin Negative (NEGATIVE) 08/06/24 05:45 Urine Urobilinogen Normal (NORMAL) 08/06/24 05:45 Ur Leukocyte Esterase 1+ (NEGATIVE) 08/06/24 05:45 Urine RBC Tntc /HPF (0-3) A 08/06/24 05:45 Urine WBC 0-2 /HPF (0-5) 08/06/24 05:45 Ur Squamous Epith Cells Negative /HPF (NEGATIVE) 08/06/24 05:45 Urine Bacteria Negative /HPF (NEGATIVE) 08/06/24 05:45 Ur Culture Indicated? No/not indicated 08/06/24 05:45 Vancomycin Trough 10.5 ug/mL (15-20) L 08/07/24 05:02 Urine Opiates Screen Negative (NEG=<300) 08/05/24 14:41 Urine Methadone Screen Negative (NEG=<300) 08/05/24 14:41 Ur Barbiturates Screen Negative (NEG=<200) 08/05/24 14:41 Ur Phencyclidine Scrn Negative (NEG=<25) 08/05/24 14:41 Ur Amphetamines Screen Negative (NEG=<1000) 08/05/24 14:41 U Benzodiazepines Scrn Negative (NEG=<200) 08/05/24 14:41 Urine Cocaine Screen Negative (NEG=<300) 08/05/24 14:41 U Marijuana (THC) Screen Negative (NEG=<50) 08/05/24 14:41 Acetone, Semi-Quant Negative (NEGATIVE) 08/05/24 14:40 Plan (1) Acute hyperglycemia: Status: Acute (2) Altered mental status: Status: Acute Qualifiers: Altered mental status type: unspecified Qualified Code(s): R41.82 - Altered mental status, unspecified (3) Leukocytosis: Status: Acute Qualifiers: Leukocytosis type: other Qualified Code(s): D72.828 - Other elevated white blood cell count (4) Rhabdomyolysis: Status: Acute Qualifiers: Rhabdomyolysis type: non-traumatic Qualified Code(s): M62.82 - Rhabdomyolysis (5) Hypokalemia: Status: Acute (6) 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
--- NOTE | 2024-08-07 11:03 | EKG ---
Test Reason : NEW ONSET AFIB Blood Pressure : */* mmHG Vent. Rate : 143 BPM Atrial Rate : * BPM P-R Int : * ms QRS Dur : 74 ms QT Int : 314 ms P-R-T Axes : * -30 63 degrees QTc Int : 484 ms Atrial fibrillation with rapid ventricular response Left axis deviation Minimal voltage criteria for LVH, may be normal variant ( R in aVL ) Nonspecific T wave abnormality Abnormal ECG When compared with ECG of 05-AUG-2024 14:28, Atrial fibrillation has replaced Sinus rhythm Criteria for Septal infarct are no longer present Borderline criteria for Lateral infarct are no longer present Non-specific change in ST segment in Anterolateral leads Confirmed by Ken Dumont MD ([id number]) on 08/07/2024 1:56:34 PM Referred By: Confirmed By: Ken Dumont MD
[2024-08-07] MEDS: PLAVIX PO SCH (11:31)
[2024-08-07] MEDS: LOPRESSOR INJ 5 MG AMP IVP ONE ×2 (11:31→12:43)
[2024-08-07] MEDS: CARDIZEM INJ 50 MG VIAL IVP ONE (13:48)
[2024-08-07] MEDS: CARDIZEM INJ 125 MG VIAL 125 MG in NS 100 ML IV 100 ML IV PRN (13:49)
--- NOTE | 2024-08-07 14:06 | DR.CONSULT ---
CONSULT Consultation for Day of: Date: 08/07/24 Chief Complaint Chief Complaint: atrial fib Allergies Allergies Allergy/AdvReac Type Severity Reaction Status Date / Time No Known Drug Allergies Allergy Unknown Verified 08/05/24 14:40 History of Present Illness History of Present Illness: 69 yo male- known cad stents to lad/rca several times - last one 2021- came to er few days ago: hr 120/bp 190- found to have glu 600 lactic acid high 7- probable UTI-trops were positive- initial ekg w/o acute changes: prwp- went int o rapid afib few hours ago- 2 doses of lopressor given lowering hr from 160 to 130- no cp/no sob Past Medical History Past Medical History: Coronary Artery Disease, Diabetes, Dyslipidemia and Hyper tension Past Surgical History Surgical History: Angioplasty/Stents Family History Family Medical History: [place] and Coronary Artery Disease Social History Does patient currently use any type of tobacco product: No Have you used tobacco products in the last 12 months: No Type of Tobacco Use: None Does any household member use tobacco: No Alcohol Use: None Medications Home Medications: No Known Drug Allergies Allergy (Unknown, Verified 08/05/24 14:40) CONTINUE taking the following medications atorvastatin 40 mg tablet 40 mg PO QDAY 08/05/24 [History] clopidogrel 75 mg tablet 75 mg PO QDAY 08/05/24 [History] metoprolol succinate 25 mg tablet,extended release 24 hr 25 mg PO DAILY 08/05/24 [History] Physical Exam Vital Signs: Vital Signs Temperature 97.7 F Temperature 97.7 F Pulse Rate [Bilateral Radial] 148 Pulse Rate [Bilateral Radial] 83 Respiratory Rate 16 Respiratory Rate 18 Respiratory Rate 18 Respiratory Rate 17 Blood Pressure [Left Arm] 110/75 Blood Pressure [Left Arm] 160/86 Blood Pressure 128/82 Blood Pressure 103/84 O2 Sat by Pulse Oximetry 95 O2 Sat by Pulse Oximetry 95 alert ox3 irreg irreg /fast clear lungs minimal edema labs: wbc 14k hct 44 glu 607 lactic acid 7.2 trops: 317/248/208/156 ekg: afib/lvh/prwp echo: hyperdynamic LV w/o wall motion abnormality Plan (1) Acute hyperglycemia: Status: Acute (2) Leukocytosis: Status: Acute Qualifiers: Leukocytosis type: other Qualified Code(s): D72.828 - Other elevated white blood cell count (3) Hypokalemia: Status: Acute (4) Essential hypertension: Status: Chronic (5) Lactic acidosis: Status: Acute (6) Elevated troponin: Status: Acute Narrative Support Text: with hyperdynamic lv- susupect related to sickness with lactic acidosis/fast hr/glucose (7) Atrial fibrillation: Status: Acute Plan: add Cardizem drip, add doac, check tsh, push bb, follow-hope he converts when acute illness resolving
[2024-08-07] MEDS: ELIQUIS PO SCH (15:09)
[2024-08-07] MEDS ORDERED: GLUCOPHAGE ONE (17:22)
[2024-08-07] MEDS: TOPROL XL PO SCH (21:22)
[2024-08-07 22:12] VITALS: BMI 31.9
[2024-08-07] MEDS: ZOSYN VIAL 4.5 GRAMS 4.5 G in NS 100 ML IV 100 ML IV SCH (23:05)
[2024-08-08 04:58] LABS: BASOPHILS # (AUTO) 0.1 X10^3/uL (0.0-0.1); EOSINOPHILS # (AUTO) 0.3 x10^3/uL (0.0-0.2); EOSINOPHILS % (AUTO) 3.7 % (0.9-2.9); HEMATOCRIT 37.2 % (42.0-54.0); HEMOGLOBIN 13.3 g/dL (13.5-18.0); LYMPHOCYTES # (AUTO) 3.1 X10^3/uL (1.3-2.9); MEAN CORPUSCULAR HGB CONC 35.6 g/dL (33.0-35.0); MEAN CORPUSCULAR VOLUME 92.8 fL (80.0-100.0); MEAN PLATELET VOLUME 8.3 fL (7.4-11.0); MONOCYTES # (AUTO) 0.6 x10^3/uL (0.3-0.8); MONOCYTES % (AUTO) 7.1 % (0.0-13.0); NEUTROPHILS # (AUTO) 4.3 x10^3/uL (2.2-4.8); NEUTROPHILS % (AUTO) 51.2 % (42.0-75.0); PLATELET COUNT 171 X10^3/uL (150.0-450.0); RED BLOOD COUNT 4.01 X10^6/uL (4.7-6.0); RED CELL DISTRIBUTION WIDTH 13.9 % (11.6-16.5); WHITE BLOOD COUNT 8.5 X10^3/uL (3.6-10.0)
[2024-08-08 05:07] LABS: ALANINE AMINOTRANSFERASE 28 Units/L (12-78); ALBUMIN 3.2 g/dL (3.4-5.0); ALKALINE PHOSPHATASE 66 Units/L (46-116); ASPARTATE AMINO TRANSFERASE 31 Units/L (15-37); BLOOD UREA NITROGEN 18 mg/dL (7-18); CALCIUM 8.5 mg/dL (8.5-10.1); CARBON DIOXIDE 21.7 mmol/L (21-32); CHLORIDE 104 mmol/L (98-107); COR CA(FOR HYPOALB) 9.1 mg/dL (8.5-10.1); COR NA(FOR HYPERGLY) 142 mmol/L (136-145); CREATININE 0.76 mg/dL (0.70-1.30); GLUCOSE 242 mg/dL (65-99); POTASSIUM 3.3 mmol/L (3.5-5.1); SODIUM 139 mmol/L (136-145); TOTAL PROTEIN 7.6 g/dL (6.4-8.2); eGFR NON BLACK RACES > 60 (>60)
[2024-08-08] MEDS ORDERED: CONSULT PHARMACY - POTASSIUM & MAGNESIUM XX SCH (07:00)
--- NOTE | 2024-08-08 07:00 | CT ---
EXAM: ABDCMEN/PELVIS WITH CON HISTORY: HEMATURIA; DM, HTN, CAD SX: ANGIO/STENTS COMPARISON: None TECHNIQUE: CT of the abdomen and pelvis obtained with IV contrast. Dose reduction techniques including Automated Exposure Control (AEC) and adjustment of mA and kV were utilized. FINDINGS: The visualized portions of the lower thorax demonstrate no acute process. Coronary calcifications. Mild bilateral gynecomastia. Small hiatal hernia. No acute osseous abnormality. Multilevel degenerative changes in the visualized spine. Nonspecific sclerosis in the L4, L5, and S1 vertebral bodies. The liver, gallbladder, spleen, pancreas, bilateral adrenal glands, and bilateral kidneys demonstrate no acute process. No evidence of bowel obstruction. The appendix is unremarkable. The bladder is decompressed with Hsieh catheter in place. No free air or fluid. Nonaneurysmal aorta. IMPRESSION: No acute findings in the abdomen or pelvis. Decompressed bladder with Hsieh catheter in place. Nonspecific sclerosis in the L4, L5, and S1 vertebral bodies which could be due to chronic changes or malignancy/metastasis. Nuclear medicine bone scan could be obtained for further evaluation. THIS IS AN ELECTRONICALLY VERIFIED FINAL REPORT 08/08/2024 6:57 AM - Electronically signed by Johnathon Nash MD
[2024-08-08] MEDS: OMNIPAQUE 350 mg/mL 100 mL BTL 100 ML ONE (07:39)
[2024-08-08] MEDS: NS 100 ML IV 100 ML ONE (07:39)
[2024-08-08] MEDS: CARDIZEM TAB 30 MG PLAIN PO SCH (08:37)
[2024-08-08] MEDS: MAG-OX TAB PO SCH (08:38)
[2024-08-08] MEDS: K-DUR TAB 20 MEQ PO SCH (08:39)
[2024-08-08] MEDS: VANCOMYCIN IV *PREMIX 1 G/200 ML BAG 1 G/200 ML PIGGYBACK IV SCH (13:30)
[2024-08-08] MEDS ORDERED: BUTT CREAM (COMPOUND) ONE (14:34)
[2024-08-08] MEDS: BUTT CREAM (COMPOUND) TOP PRN (14:45)
[2024-08-09 05:06] LABS: BASOPHILS # (AUTO) 0.1 X10^3/uL (0.0-0.1); BASOPHILS % (AUTO) 1.1 % (0.2-1.0); EOSINOPHILS # (AUTO) 0.4 x10^3/uL (0.0-0.2); EOSINOPHILS % (AUTO) 5.6 % (0.9-2.9); HEMOGLOBIN 12.2 g/dL (13.5-18.0); LYMPHOCYTES # (AUTO) 2.6 X10^3/uL (1.3-2.9); MEAN CORPUSCULAR HEMOGLOBIN 33.4 pg (27.0-34.0); MEAN CORPUSCULAR HGB CONC 35.9 g/dL (33.0-35.0); MEAN CORPUSCULAR VOLUME 93.1 fL (80.0-100.0); MEAN PLATELET VOLUME 8.7 fL (7.4-11.0); MONOCYTES # (AUTO) 0.6 x10^3/uL (0.3-0.8); MONOCYTES % (AUTO) 7.8 % (0.0-13.0); NEUTROPHILS # (AUTO) 4.1 x10^3/uL (2.2-4.8); NEUTROPHILS % (AUTO) 52.5 % (42.0-75.0); PLATELET COUNT 160 X10^3/uL (150.0-450.0); RED BLOOD COUNT 3.66 X10^6/uL (4.7-6.0); WHITE BLOOD COUNT 7.8 X10^3/uL (3.6-10.0)
[2024-08-09 05:17] LABS: VANCOMYCIN,TROUGH 15.1 ug/mL (15-20)
[2024-08-09 05:27] LABS: ALANINE AMINOTRANSFERASE 31 Units/L (12-78); ALKALINE PHOSPHATASE 59 Units/L (46-116); ASPARTATE AMINO TRANSFERASE 24 Units/L (15-37); BLOOD UREA NITROGEN 16 mg/dL (7-18); CALCIUM 8.3 mg/dL (8.5-10.1); CARBON DIOXIDE 21.2 mmol/L (21-32); CHLORIDE 106 mmol/L (98-107); COR CA(FOR HYPOALB) 9.1 mg/dL (8.5-10.1); COR NA(FOR HYPERGLY) 143 mmol/L (136-145); CREATININE 0.76 mg/dL (0.70-1.30); GLUCOSE 248 mg/dL (65-99); POTASSIUM 3.6 mmol/L (3.5-5.1); SODIUM 139 mmol/L (136-145); TOTAL PROTEIN 6.2 g/dL (6.4-8.2); eGFR NON BLACK RACES > 60 (>60)
[2024-08-09] MEDS ORDERED: CONSULT PHARMACY - POTASSIUM & MAGNESIUM XX SCH (06:00)
[2024-08-09] MEDS: K-DUR TAB 20 MEQ PO SCH (08:15)
[2024-08-09] MEDS: MAG-OX TAB PO SCH (08:17)
[2024-08-09 12:11] VITALS: TEMP 97.9
[2024-08-09 13:46] VITALS: O2SAT 98
[2024-08-09 15:29] VITALS: PULSE 83
[2024-08-09 16:04] VITALS: BP 131/68
--- NOTE | 2024-08-09 16:46 | PCM.DCPLAN ---
DISCHARGE SUMMARY Admission Date Date of Admission: 08/05/24 Discharge Date Discharge Date: 08/09/24 Admission Diagnoses (1) Acute hyperglycemia: Status: Acute (2) Leukocytosis: Status: Acute (3) Hypokalemia: Status: Acute (4) Essential hypertension: Status: Chronic (5) Lactic acidosis: Status: Acute (6) Elevated troponin: Status: Acute (7) Atrial fibrillation: Status: Acute Discharge Medications Discharge Medications: Home Medication List atorvastatin 40 mg tablet 40 mg PO QDAY 08/05/24 [History] clopidogrel 75 mg tablet 75 mg PO QDAY 08/05/24 [History] metoprolol succinate 25 mg tablet,extended release 24 hr 25 mg PO DAILY 08/05/24 [History] Prescriptions: Hospital Course Vital Signs: Vital Signs Temperature 97.7 F Temperature 97.7 F Temperature 98.1 F Pulse Rate 70 Pulse Rate 76 Pulse Rate 74 Pulse Rate 79 Pulse Rate 78 Pulse Rate 78 Pulse Rate 75 Pulse Rate 68 Pulse Rate 65 Respiratory Rate 18 Respiratory Rate 11 Respiratory Rate 14 Respiratory Rate 17 Respiratory Rate 17 Respiratory Rate 22 Respiratory Rate 22 Respiratory Rate 14 Respiratory Rate 16 Respiratory Rate 14 Respiratory Rate 15 Blood Pressure 122/69 Blood Pressure 135/70 Blood Pressure 124/68 Blood Pressure 125/74 Blood Pressure 134/70 Blood Pressure 134/70 Blood Pressure 127/67 Blood Pressure 118/78 Blood Pressure 110/57 O2 Sat by Pulse Oximetry 100 O2 Sat by Pulse Oximetry 97 O2 Sat by Pulse Oximetry 96 O2 Sat by Pulse Oximetry 97 O2 Sat by Pulse Oximetry 99 O2 Sat by Pulse Oximetry 98 O2 Sat by Pulse Oximetry 100 O2 Sat by Pulse Oximetry 99 O2 Sat by Pulse Oximetry 96 Latest Lab Results: Laboratory Last Values WBC 7.8 X10^3/uL (3.6-10.0) 08/09/24 04:14 RBC 3.66 X10^6/uL (4.7-6.0) L 08/09/24 04:14 Hgb 12.2 g/dL (13.5-18.0) L 08/09/24 04:14 Hct 34.0 % (42.0-54.0) L 08/09/24 04:14 MCV 93.1 fL (80.0-100.0) 08/09/24 04:14 MCH 33.4 pg (27.0-34.0) 08/09/24 04:14 MCHC 35.9 g/dL (33.0-35.0) H 08/09/24 04:14 RDW 14.0 % (11.6-16.5) 08/09/24 04:14 Plt Count 160 X10^3/uL (150.0-450.0) 08/09/24 04:14 MPV 8.7 fL (7.4-11.0) 08/09/24 04:14 Neut % (Auto) 52.5 % (42.0-75.0) 08/09/24 04:14 Lymph % (Auto) 33.0 % (21.0-51.0) 08/09/24 04:14 [place] % (Auto) 7.8 % (0.0-13.0) 08/09/24 04:14 Eos % (Auto) 5.6 % (0.9-2.9) H 08/09/24 04:14 Baso % (Auto) 1.1 % (0.2-1.0) H 08/09/24 04:14 Neut # (Auto) 4.1 x10^3/uL (2.2-4.8) 08/09/24 04:14 Lymph # (Auto) 2.6 X10^3/uL (1.3-2.9) 08/09/24 04:14 [place] # (Auto) 0.6 x10^3/uL (0.3-0.8) 08/09/24 04:14 Eos # (Auto) 0.4 x10^3/uL (0.0-0.2) H 08/09/24 04:14 Baso # (Auto) 0.1 X10^3/uL (0.0-0.1) 08/09/24 04:14 Absolute Nucleated RBC 0.2 /100WBC 08/09/24 04:14 PT 16.1 SECONDS (11.8-14.3) 08/06/24 04:48 INR Target Range - 08/06/24 04:48 INR 1.27 (0.8-1.3) 08/06/24 04:48 APTT 33.2 SECONDS (22.9-36.5) 08/06/24 04:48 PTT Comment - 08/06/24 04:48 Sample Site Rbra 08/05/24 14:35 ABG pH 7.480 (7.35-7.45) H 08/05/24 14:35 ABG pCO2 25.0 mmHg (35.0-45.0) L 08/05/24 14:35 ABG pO2 85.0 mmHg (80.0-100.0) 08/05/24 14:35 ABG HCO3 18.6 mmol/L (22-26) L 08/05/24 14:35 ABG O2 Saturation 97.0 % (90-100) 08/05/24 14:35 ABG Base Excess -3.4 mmol/L (-2.0-2.0) L 08/05/24 14:35 Brandon Test Na 08/05/24 14:35 A-a Gradient 33.0 mmHg 08/05/24 14:35 FiO2 21.0 08/05/24 14:35 Blood Gas Comments Anni well ms 08/05/24 14:35 Sodium 139 mmol/L (136-145) 08/09/24 04:14 Corrected Sodium 143 mmol/L (136-145) 08/09/24 04:14 Potassium 3.6 mmol/L (3.5-5.1) 08/09/24 04:14 Chloride 106 mmol/L (98-107) 08/09/24 04:14 Carbon Dioxide 21.2 mmol/L (21-32) 08/09/24 04:14 BUN 16 mg/dL (7-18) 08/09/24 04:14 Creatinine 0.76 mg/dL (0.70-1.30) 08/09/24 04:14 Est GFR (MDRD) Af Amer > 60 (>60) 08/09/24 04:14 Est GFR (MDRD) Non-Af > 60 (>60) 08/09/24 04:14 Glucose 248 mg/dL (65-99) H 08/09/24 04:14 POC Glucose (mg/dL) 227 mg/dL (65-99) H 08/09/24 11:19 Lactic Acid 1.1 mmol/L (0.4-2.0) 08/06/24 07:24 Calcium 8.3 mg/dL (8.5-10.1) L 08/09/24 04:14 Corrected Calcium 9.1 mg/dL (8.5-10.1) 08/09/24 04:14 Magnesium 1.9 mg/dL (2.0-2.9) L 08/09/24 04:14 Total Bilirubin 0.60 mg/dL (0.2-1.0) 08/09/24 04:14 AST 24 Units/L (15-37) 08/09/24 04:14 ALT 31 Units/L (12-78) 08/09/24 04:14 Alkaline Phosphatase 59 Units/L (46-116) 08/09/24 04:14 Creatine Kinase 575 Units/L (39-308) H 08/06/24 08:41 Troponin I High Sens 59.5 ng/L (4.0-60.0) 08/07/24 12:16 Total Protein 6.2 g/dL (6.4-8.2) L 08/09/24 04:14 Albumin 3.0 g/dL (3.4-5.0) L 08/09/24 04:14 Globulin 3.2 g/dL (2.5-4.5) 08/09/24 04:14 Albumin/Globulin Ratio 0.9 Ratio (1.1-2.1) L 08/09/24 04:14 Triglycerides 184 mg/dL (0-150) H 08/06/24 04:48 Cholesterol 116 mg/dL (0-200) 08/06/24 04:48 LDL Cholesterol, Calc 37 mg/dL (0-100) 08/06/24 04:48 HDL Cholesterol 42 mg/dL (40-60) 08/06/24 04:48 Cholesterol/HDL Ratio 2.8 (0.0-5.0) 08/06/24 04:48 TSH 3rd Generation 4.563 uIU/mL (0.358-3.74) H 08/07/24 05:02 Specimen Type Catherized urine 08/06/24 05:45 Urine Color Bloody (YELLOW) 08/06/24 05:45 Urine Appearance Slightly hazy (CLEAR) 08/06/24 05:45 Urine pH 6.0 (5.0 - 8.0) 08/06/24 05:45 Ur Specific [place] 1.020 (1.000-1.030) 08/06/24 05:45 Urine Protein 3+ (NEGATIVE) 08/06/24 05:45 Urine Glucose (UA) 4+ (NEGATIVE) 08/06/24 05:45 Urine Ketones 4+ (NEGATIVE) 08/06/24 05:45 Urine Blood 5+ (NEGATIVE) 08/06/24 05:45 Urine Nitrite Negative (NEGATIVE) 08/06/24 05:45 Urine Bilirubin Negative (NEGATIVE) 08/06/24 05:45 Urine Urobilinogen Normal (NORMAL) 08/06/24 05:45 Ur Leukocyte Esterase 1+ (NEGATIVE) 08/06/24 05:45 Urine RBC Tntc /HPF (0-3) A 08/06/24 05:45 Urine WBC 0-2 /HPF (0-5) 08/06/24 05:45 Ur Squamous Epith Cells Negative /HPF (NEGATIVE) 08/06/24 05:45 Urine Bacteria Negative /HPF (NEGATIVE) 08/06/24 05:45 Ur Culture Indicated? No/not indicated 08/06/24 05:45 Vancomycin Trough 15.1 ug/mL (15-20) 08/09/24 04:14 Random Vancomycin 11.9 ug/mL 08/08/24 04:43 Urine Opiates Screen Negative (NEG=<300) 08/05/24 14:41 Urine Methadone Screen Negative (NEG=<300) 08/05/24 14:41 Ur Barbiturates Screen Negative (NEG=<200) 08/05/24 14:41 Ur Phencyclidine Scrn Negative (NEG=<25) 08/05/24 14:41 Ur Amphetamines Screen Negative (NEG=<1000) 08/05/24 14:41 U Benzodiazepines Scrn Negative (NEG=<200) 08/05/24 14:41 Urine Cocaine Screen Negative (NEG=<300) 08/05/24 14:41 U Marijuana (THC) Screen Negative (NEG=<50) 08/05/24 14:41 Acetone, Semi-Quant Negative (NEGATIVE) 08/05/24 14:40 Hospital Course: Patient brought to the ER by daughter due to concerns about altered mental status. Concern for severe sepsis with leukocytosis, rhabdomyolysis, hypoglycemia, and AMS at admission. Urine and blood cultures have been negative to date. Labs have improved. Still mildly hyperglycemic. Mental status has completely improved and patient requesting to go home. Cardiology consulted as patient did go into [facility] with RVR. Started on a diltiazem drip which was stopped yesterday after starting oral diltiazem and DOAC. He is to be discharged on diltiazem and Eliquis and to resume his home meds. Urine was grossly abnormal but thought to be secondary due to rhabdomyolysis, hyperglycemia, and lactic acidosis. Patient have close follow-up with PCP and cardiology. Patient was discharged in improved, stable condition to home aftern declining home health services and ambulating safely around the room.
[2024-08-09 17:23] VITALS: RESP 20
--- NOTE | 2024-08-11 12:53 | PCM.PROG ---
Progress Note Progress Note for Day of Date of Exam: 08/08/24 Subjective Subjective: Patient is a 69-year-old male with a past medical history of CAD, type 2 diabetes, hypertension, hyperlipidemia and chronic pain admitted for hyperglycemia, altered mental status, leukocytosis, rhabdomyolysis, hypokalemia. Yesterday he had atrial fibrillation with RVR and was placed on diltiazem gtt. Cardiology-Dr Dumont was consulted. This morning he will be starting po diltiazem. Labs/imaging reviewed: - WBC 8.5, hgb 13.3, Plt 171, Na 139, potassium 3.3, creatinine 0.76, glucose 242, - CTAP: no acute findings. - Blood culture no growth to date. Plan: Continue IV fluids and antibiotics. Wean off diltiazem gtt as tolerated. Continue eliquis. Home medications have been resumed. Continue SSI for hyperglycemia. Replace electrolytes as per protocol. Remove Campos as per protocol. Physical therapy as tolerated. Monitor a.m. labs and imaging. Time spent for clinical assessment, reviewing labs/imaging, physical exam, decision making and documentation greater than 45 mins. Past Medical Family Social History Allergies: Allergies No Known Drug Allergies Allergy (Unknown, Verified 08/05/24 14:40) Onset Date: 05/18/2017 Review of Systems ROS changes noted: see HPI Vital Signs and I&O's Vital Signs: Vital Signs Temperature 97.6 F Pulse Rate [Bilateral Radial] 81 Pulse Rate [Bilateral Radial] 75 Pulse Rate [Bilateral Radial] 64 Pulse Rate [Bilateral Radial] 66 Pulse Rate [Bilateral Radial] 78 Pulse Rate 77 Pulse Rate 74 Pulse Rate 76 Pulse Rate 78 Pulse Rate 76 Respiratory Rate 11 Respiratory Rate 13 Respiratory Rate 16 Respiratory Rate 12 Respiratory Rate 17 Respiratory Rate 13 Respiratory Rate 17 Respiratory Rate 16 Respiratory Rate 23 Respiratory Rate 13 Respiratory Rate 14 Blood Pressure [Left Arm] 107/61 Blood Pressure [Left Arm] 110/62 Blood Pressure [Left Arm] 110/63 Blood Pressure [Left Arm] 103/57 Blood Pressure [Left Arm] 105/56 Blood Pressure 116/70 Blood Pressure 116/70 Blood Pressure 113/60 O2 Sat by Pulse Oximetry 99 O2 Sat by Pulse Oximetry 98 O2 Sat by Pulse Oximetry 98 O2 Sat by Pulse Oximetry 98 O2 Sat by Pulse Oximetry 97 O2 Sat by Pulse Oximetry 97 O2 Sat by Pulse Oximetry 97 O2 Sat by Pulse Oximetry 99 O2 Sat by Pulse Oximetry 97 O2 Sat by Pulse Oximetry 97 Intake and Output: Intake & Output 08/05/24 08/06/24 08/07/24 08/08/24 23:59 23:59 23:59 23:59 Intake Total 422 / 422 2984 / 2984 3793 / 3793 806 / 806 Output Total 900 / 900 2075 / 2075 2600 / 2600 375 / 375 Balance -478 / -478 909 / 909 1193 / 1193 431 / 431 Physical Exam Oriented: Normal Eyes: Normal Respiratory: Normal Cardiovascular: Normal and Edema : Other (campos catheter) Auscultation: Bowel Sounds: Normal Tenderness: Normal Skin: Normal Musculoskeletal: Normal Psychiatric: Normal Mood Description: Calm Affect: Normal Speech Pattern: Clear and Appropriate Laboratory and Diagnostics 08/09/24 04:14 08/09/24 04:14 Labs: 08/05/24 14:45 Blood Blood Culture - Preliminary 08/05/24 14:40 Blood Blood Culture - Preliminary Laboratory WBC 8.5 X10^3/uL (3.6-10.0) 08/08/24 04:43 RBC 4.01 X10^6/uL (4.7-6.0) L 08/08/24 04:43 Hgb 13.3 g/dL (13.5-18.0) L 08/08/24 04:43 Hct 37.2 % (42.0-54.0) L 08/08/24 04:43 MCV 92.8 fL (80.0-100.0) 08/08/24 04:43 MCH 33.0 pg (27.0-34.0) 08/08/24 04:43 MCHC 35.6 g/dL (33.0-35.0) H 08/08/24 04:43 RDW 13.9 % (11.6-16.5) 08/08/24 04:43 Plt Count 171 X10^3/uL (150.0-450.0) 08/08/24 04:43 MPV 8.3 fL (7.4-11.0) 08/08/24 04:43 Neut % (Auto) 51.2 % (42.0-75.0) 08/08/24 04:43 Lymph % (Auto) 37.0 % (21.0-51.0) 08/08/24 04:43 [place] % (Auto) 7.1 % (0.0-13.0) 08/08/24 04:43 Eos % (Auto) 3.7 % (0.9-2.9) H 08/08/24 04:43 Baso % (Auto) 1.0 % (0.2-1.0) 08/08/24 04:43 Neut # (Auto) 4.3 x10^3/uL (2.2-4.8) 08/08/24 04:43 Lymph # (Auto) 3.1 X10^3/uL (1.3-2.9) H 08/08/24 04:43 [place] # (Auto) 0.6 x10^3/uL (0.3-0.8) 08/08/24 04:43 Eos # (Auto) 0.3 x10^3/uL (0.0-0.2) H 08/08/24 04:43 Baso # (Auto) 0.1 X10^3/uL (0.0-0.1) 08/08/24 04:43 Absolute Nucleated RBC 0.0 /100WBC 08/08/24 04:43 PT 16.1 SECONDS (11.8-14.3) 08/06/24 04:48 INR Target Range - 08/06/24 04:48 INR 1.27 (0.8-1.3) 08/06/24 04:48 APTT 33.2 SECONDS (22.9-36.5) 08/06/24 04:48 PTT Comment - 08/06/24 04:48 Sample Site Rbra 08/05/24 14:35 ABG pH 7.480 (7.35-7.45) H 08/05/24 14:35 ABG pCO2 25.0 mmHg (35.0-45.0) L 08/05/24 14:35 ABG pO2 85.0 mmHg (80.0-100.0) 08/05/24 14:35 ABG HCO3 18.6 mmol/L (22-26) L 08/05/24 14:35 ABG O2 Saturation 97.0 % (90-100) 08/05/24 14:35 ABG Base Excess -3.4 mmol/L (-2.0-2.0) L 08/05/24 14:35 Brandon Test Na 08/05/24 14:35 A-a Gradient 33.0 mmHg 08/05/24 14:35 FiO2 21.0 08/05/24 14:35 Blood Gas Comments Anni well ms 08/05/24 14:35 Sodium 139 mmol/L (136-145) 08/08/24 04:43 Corrected Sodium 142 mmol/L (136-145) 08/08/24 04:43 Potassium 3.3 mmol/L (3.5-5.1) L 08/08/24 04:43 Chloride 104 mmol/L (98-107) 08/08/24 04:43 Carbon Dioxide 21.7 mmol/L (21-32) 08/08/24 04:43 BUN 18 mg/dL (7-18) 08/08/24 04:43 Creatinine 0.76 mg/dL (0.70-1.30) 08/08/24 04:43 Est GFR (MDRD) Af Amer > 60 (>60) 08/08/24 04:43 Est GFR (MDRD) Non-Af > 60 (>60) 08/08/24 04:43 Glucose 242 mg/dL (65-99) H 08/08/24 04:43 POC Glucose (mg/dL) 288 mg/dL (65-99) H 08/08/24 06:17 Lactic Acid 1.1 mmol/L (0.4-2.0) 08/06/24 07:24 Calcium 8.5 mg/dL (8.5-10.1) 08/08/24 04:43 Corrected Calcium 9.1 mg/dL (8.5-10.1) 08/08/24 04:43 Magnesium 1.9 mg/dL (2.0-2.9) L 08/08/24 04:43 Total Bilirubin 0.60 mg/dL (0.2-1.0) 08/08/24 04:43 AST 31 Units/L (15-37) 08/08/24 04:43 ALT 28 Units/L (12-78) 08/08/24 04:43 Alkaline Phosphatase 66 Units/L (46-116) 08/08/24 04:43 Creatine Kinase 575 Units/L (39-308) H 08/06/24 08:41 Troponin I High Sens 59.5 ng/L (4.0-60.0) 08/07/24 12:16 Total Protein 7.6 g/dL (6.4-8.2) 08/08/24 04:43 Albumin 3.2 g/dL (3.4-5.0) L 08/08/24 04:43 Globulin 4.4 g/dL (2.5-4.5) 08/08/24 04:43 Albumin/Globulin Ratio 0.7 Ratio (1.1-2.1) L 08/08/24 04:43 Triglycerides 184 mg/dL (0-150) H 08/06/24 04:48 Cholesterol 116 mg/dL (0-200) 08/06/24 04:48 LDL Cholesterol, Calc 37 mg/dL (0-100) 08/06/24 04:48 HDL Cholesterol 42 mg/dL (40-60) 08/06/24 04:48 Cholesterol/HDL Ratio 2.8 (0.0-5.0) 08/06/24 04:48 TSH 3rd Generation 4.563 uIU/mL (0.358-3.74) H 08/07/24 05:02 Specimen Type Catherized urine 08/06/24 05:45 Urine Color Bloody (YELLOW) 08/06/24 05:45 Urine Appearance Slightly hazy (CLEAR) 08/06/24 05:45 Urine pH 6.0 (5.0 - 8.0) 08/06/24 05:45 Ur Specific [place] 1.020 (1.000-1.030) 08/06/24 05:45 Urine Protein 3+ (NEGATIVE) 08/06/24 05:45 Urine Glucose (UA) 4+ (NEGATIVE) 08/06/24 05:45 Urine Ketones 4+ (NEGATIVE) 08/06/24 05:45 Urine Blood 5+ (NEGATIVE) 08/06/24 05:45 Urine Nitrite Negative (NEGATIVE) 08/06/24 05:45 Urine Bilirubin Negative (NEGATIVE) 08/06/24 05:45 Urine Urobilinogen Normal (NORMAL) 08/06/24 05:45 Ur Leukocyte Esterase 1+ (NEGATIVE) 08/06/24 05:45 Urine RBC Tntc /HPF (0-3) A 08/06/24 05:45 Urine WBC 0-2 /HPF (0-5) 08/06/24 05:45 Ur Squamous Epith Cells Negative /HPF (NEGATIVE) 08/06/24 05:45 Urine Bacteria Negative /HPF (NEGATIVE) 08/06/24 05:45 Ur Culture Indicated? No/not indicated 08/06/24 05:45 Vancomycin Trough 10.5 ug/mL (15-20) L 08/07/24 05:02 Random Vancomycin 11.9 ug/mL 08/08/24 04:43 Urine Opiates Screen Negative (NEG=<300) 08/05/24 14:41 Urine Methadone Screen Negative (NEG=<300) 08/05/24 14:41 Ur Barbiturates Screen Negative (NEG=<200) 08/05/24 14:41 Ur Phencyclidine Scrn Negative (NEG=<25) 08/05/24 14:41 Ur Amphetamines Screen Negative (NEG=<1000) 08/05/24 14:41 U Benzodiazepines Scrn Negative (NEG=<200) 08/05/24 14:41 Urine Cocaine Screen Negative (NEG=<300) 08/05/24 14:41 U Marijuana (THC) Screen Negative (NEG=<50) 08/05/24 14:41 Acetone, Semi-Quant Negative (NEGATIVE) 08/05/24 14:40 Plan (1) Acute hyperglycemia: Status: Acute (2) Leukocytosis: Status: Acute Qualifiers: Leukocytosis type: other Qualified Code(s): D72.828 - Other elevated white blood cell count (3) Hypokalemia: Status: Acute (4) Essential hypertension: Status: Chronic (5) Lactic acidosis: Status: Acute (6) Elevated troponin: Status: Acute (7) Atrial fibrillation: Status: Acute Qualifiers: Atrial fibrillation type: unspecified Qualified Code(s): I48.91 - Unspecified atrial fibrillation
== END 2024-08-09 18:20 | disposition home or self-care (01) | DRG 638 ==
LOC: ER 14:04 → MED/SURG 14:04 → OBSVTOIN 17:42 → MED/SURG 19:19 → ICU 08-07 11:20 → MED/SURG 08-09 16:57
PROVIDERS: ADMIT Family Medicine; ATTEND Family Medicine
DX: E78.5 Hyperlipidemia, unspecified; G89.29 Other chronic pain; R31.9 Hematuria, unspecified; R41.82 Altered mental status, unspecified; M62.82 Rhabdomyolysis; N39.0 Urinary tract infection, site not specified; E87.21 Acute metabolic acidosis; R26.2 Difficulty in walking, not elsewhere classified; I48.91 Unspecified atrial fibrillation; I10 Essential (primary) hypertension; F41.9 Anxiety disorder, unspecified; E87.6 Hypokalemia; E11.40 Type 2 diabetes mellitus with diabetic neuropathy, unspecified; R79.89 Other specified abnormal findings of blood chemistry; E11.65 Type 2 diabetes mellitus with hyperglycemia; I25.10 Atherosclerotic heart disease of native coronary artery without angina pectoris